=== PATIENT | female | born 1945 | race Caucasian/White ===

== ENCOUNTER → 2016-10-13 | Outpatient (CLI) | payer MEDICARE, BC | LOC: LAB 13:29 | DX: E03.4 Atrophy of thyroid (acquired) (principal) ==

== ENCOUNTER → 2017-01-25 | Outpatient (CLI) | payer MEDICARE, BC | LOC: LAB 09:37 | DX: E03.4 Atrophy of thyroid (acquired) (principal) ==

== ENCOUNTER → 2017-05-31 | Outpatient (CLI) | payer MEDICARE, BC | LOC: LAB 13:55 | DX: I10 Essential (primary) hypertension (principal); M85.89 Other specified disorders of bone density and structure, multiple sites; E78.2 Mixed hyperlipidemia; C18.9 Malignant neoplasm of colon, unspecified; E03.4 Atrophy of thyroid (acquired) ==

== ENCOUNTER → 2017-06-15 | Outpatient (CLI) | payer MEDICARE, BC | LOC: LAB 13:48 | DX: C18.9 Malignant neoplasm of colon, unspecified (principal) ==

== ENCOUNTER → 2017-07-04 | Outpatient (CLI) | payer MEDICARE, BC ==
[~2017-07-04] VITALS: Ht 162.6 cm; Wt 96.8 kg
[~2017-07-04] MED LIST: COZAAR100 MG PO; GOOD NEIGHBOR P20 M1 PO; LEVOTHYROXINE100 MC1 PO
[2017-07-04 16:27] VITALS: BP 176/67
== END ==
LOC: LAB 15:24 → RAD 15:24
DX: Z01.818 Encounter for other preprocedural examination (principal); C50.919 Malignant neoplasm of unspecified site of unspecified female breast; N30.00 Acute cystitis without hematuria

== ENCOUNTER → 2017-07-09 | Outpatient (CLI) | payer MEDICARE, BC ==
[2017-07-04 16:27] VITALS: BP 176/67
== END ==
LOC: LAB 08:40
DX: N39.0 Urinary tract infection, site not specified (principal)

== ENCOUNTER → 2018-06-24 | Outpatient (CLI) | payer MEDICARE, BC ==
[2017-07-04 16:27] VITALS: BP 176/67
[2018-06-24 12:16] LABS: ALBUMIN 3.8 g/dL (3.5-5.0); CALCIUM 9.5 mg/dL (8.4-10.2); TOTAL BILIRUBIN 0.9 mg/dL (0.2-1.3); TOTAL PROTEIN 6.9 g/dL (6.3-8.2)
[2018-06-24 12:17] LABS: HEMATOCRIT 39.5 % (37.0-47.0); HEMOGLOBIN 12.6 g/dL (12.5-16.0); MEAN CELL VOLUME 84 fl (78-100); MEAN CORPUSCULAR HEMOGLOBIN 27 pg (27-31); MEAN CORPUSCULAR HGB CONC 32 g/dL (33-37); MEAN PLATELET VOLUME 10.7 fl (7.4-10.4); PLATELET COUNT 217 K/mm3 (130-400); RED BLOOD COUNT 4.71 M/mm3 (4.10-5.30); RED CELL DISTRIBUTION WIDTH 15.9 % (11.5-14.5); WHITE BLOOD COUNT 6.2 K/mm3 (4.8-10.8)
[2018-06-24 12:52] LABS: LYMPHOCYTE 26 % (20-51); MONOCYTE 8 % (3-10); NEUTROPHILS 65 % (42-75)
[2018-06-24 13:56] LABS: ERYTHROCYTE SEDIMENTATION RATE 10 mm/hr (0-30)
== END ==
LOC: LAB 11:43
PROVIDERS: Internal Medicine
DX: Z12.11 Encounter for screening for malignant neoplasm of colon (principal); I10 Essential (primary) hypertension; E78.5 Hyperlipidemia, unspecified; M54.5 Low back pain; M85.80 Other specified disorders of bone density and structure, unspecified site

== ENCOUNTER → 2018-08-08 | Outpatient (CLI) | payer MEDICARE, BC ==
[2017-07-04 16:27] VITALS: BP 176/67
== END ==
LOC: LAB 14:05
DX: Z12.11 Encounter for screening for malignant neoplasm of colon (principal)

== ENCOUNTER → 2019-07-31 | Outpatient (CLI) | payer MEDICARE, BC ==
[2017-07-04 16:27] VITALS: BP 176/67
[2019-07-31 11:29] LABS: BASO # 0.1 (0.02-0.10); EOS # 0.1 (0.04-0.40); EOS % 1.1 % (1.0-5.0); HEMATOCRIT 46.8 % (37.0-47.0); HEMOGLOBIN 14.8 g/dL (12.5-16.0); LYMPH# 1.3 (1.50-4.00); MEAN CELL VOLUME 91 fl (78-100); MEAN CORPUSCULAR HEMOGLOBIN 29 pg (27-31); MEAN CORPUSCULAR HGB CONC 32 g/dL (33-37); MEAN PLATELET VOLUME 10.6 fl (7.4-10.4); MONO # 0.7 (0.20-0.80); PLATELET COUNT 236 K/mm3 (130-400); RED BLOOD COUNT 5.14 M/mm3 (4.10-5.30); RED CELL DISTRIBUTION WIDTH 14.9 % (11.5-14.5); WHITE BLOOD COUNT 6.2 K/mm3 (4.8-10.8)
[2019-07-31 11:52] LABS: ALBUMIN 3.8 g/dL (3.4-4.8); POTASSIUM 3.9 mmol/L (3.5-5.1)
[2019-07-31 11:53] LABS: CALCIUM 10.3 mg/dL (8.3-10.5)
[2019-07-31 11:55] LABS: TOTAL PROTEIN 7.1 g/dL (6.2-8.1)
[2019-07-31 12:47] LABS: ERYTHROCYTE SEDIMENTATION RATE 7 mm/hr (0-30)
== END ==
LOC: LAB 11:09
PROVIDERS: Internal Medicine
DX: I10 Essential (primary) hypertension (principal); E78.5 Hyperlipidemia, unspecified; M85.80 Other specified disorders of bone density and structure, unspecified site; E03.9 Hypothyroidism, unspecified

== ENCOUNTER → 2020-02-12 | Outpatient (CLI) | payer MEDICARE, BC ==
[2017-07-04 16:27] VITALS: BP 176/67
== END ==
LOC: LAB 10:13
DX: M85.89 Other specified disorders of bone density and structure, multiple sites (principal)